=== PATIENT | female | born 1970 ===

== ENCOUNTER 2017-07-12 09:04 | Emergency (ER) | payer OTHER ==
--- NOTE | 2017-07-12 09:49 | ED PDOC ---
Arrival/HPI - General Historian: Patient <Dewayne Obregon - Last Filed: 07/12/17 18:57> - History of Present Illness Time/Duration: Prior to Arrival Symptom Onset: Gradual Symptom Course: Improving <Elier Cruz - Last Filed: 07/13/17 11:34> - General Chief Complaint: High Blood Pressure Time Seen by Provider: 07/12/17 09:40 - History of Present Illness Narrative History of Present Illness (Text): 07/12/17 09:45 Pt is a 46 yo F with PMH of hypertension and RA presents to Emergency department due elevated BP found prior to colonscopy with Dr. Matson. BP measured at outpatient endoscopy lab was found to be in 200's/100's. Pt was given Labetalol 20 mg IVP with improvement in her BP. Pt was then advised to proceed to Emergency department for further evaluation. Pt denied chest pain, shortness of breath, blurred vision fatigue, nausea, vomiting, diarrhea, abdominal pain, fever, chills, headache, dizziness, or dysuria. (Dewayne Obregon) Past Medical History - Cardiac Hx Cardiac Disorders: Yes Hx Hypertension: Yes - Neurological Hx Migraine: Yes - Musculoskeletal/Rheumatological Hx Rheumatoid Arthritis: Yes - Psychiatric Hx Substance Use: No - Surgical History Hx Orthopedic Surgery: Yes <Dewayne Obregon - Last Filed: 07/12/17 18:57> - Provider Review Nursing Documentation Reviewed: Yes <Elier Cruz - Last Filed: 07/13/17 11:34> Family/Social History Smoking Status: Never Smoked Hx Alcohol Use: No Hx Substance Use: No <Dewayne Obregon - Last Filed: 07/12/17 18:57> - Physician Review Nursing Documentation Reviewed: Yes Family/Social History: No Known Family HX <Elier Cruz - Last Filed: 07/13/17 11:34> Allergies/Home Meds <Dewayne Obregon - Last Filed: 07/12/17 18:57> <Elier Cruz - Last Filed: 07/13/17 11:34> Allergies/Adverse Reactions: Allergies No Known Allergies Allergy (Verified 07/12/17 09:31) Review of Systems - Review of Systems Constitutional: Normal Eyes: Normal ENT: Normal Respiratory: Normal Cardiovascular: Normal Gastrointestinal: Normal Genitourinary Female: Normal Musculoskeletal: Normal Skin: Normal Neurological: Normal Endocrine: Normal Hemo/Lymphatic: Normal Psychiatric: Normal <Dewayne Obregon - Last Filed: 07/12/17 18:57> - Physician Review All systems were reviewed & negative as marked: Yes <Elier Cruz - Last Filed: 07/13/17 11:34> Physical Exam Temperature: Afebrile Blood Pressure: Normal Appearance: Positive for: Well-Appearing - Systems Exam Head: Present: Atraumatic, Normocephalic Respiratory/Chest: Present: Clear to Auscultation. No: Accessory Muscle Use, Wheezes, Rales, Rhonchi Cardiovascular: Present: Regular Rate and Rhythm, Normal S1, S2. No: Murmurs Abdomen: Present: Normal Bowel Sounds. No: Tenderness, Distention, Rebound Upper Extremity: Present: Normal Inspection Lower Extremity: Present: Normal Inspection Neurological: Present: GCS=15 Skin: Present: Warm, Dry, Normal Color. No: Rashes Psychiatric: Present: Alert, Oriented x 3 <Dewayne Obregon - Last Filed: 07/12/17 18:57> - Systems Exam Pupils: Present: PERRL <Elier Cruz - Last Filed: 07/13/17 11:34> Vital Signs Pulse Resp BP Pulse Ox 07/12/17 11:30 72 18 159/93 H 98 07/12/17 09:31 160/131 H Medical Decision Making <Dewayne Obregon - Last Filed: 07/12/17 18:57> <Elier Cruz - Last Filed: 07/13/17 11:34> ED Course and Treatment: 07/12/17 10:11 Impression: 46 year old female presents to the Emergency department for elevated BP. In agreement with resident note, which includes further HPI details. Patient was seen and evaluated with resident, came up with plan and treatment together. Plan: -- EKG -- Labs -- Urinalysis -- Reassess and disposition 07/13/17 11:33 pt seen with resident. asymptomatic hypertension. no e/o of htn emergency. no complaints in er. advise otupt f/u labs unremarkable. neuro intac.t (Elier Cruz) - Lab Interpretations Lab Results: 07/12/17 09:50 07/12/17 09:50 Lab Results 07/12/17 09:50: Sodium 141, Potassium 3.1 L, Chloride 104, Carbon Dioxide 27, Anion Gap 14, BUN 12, Creatinine 1.0, Est GFR ( Amer) > 60, Est GFR (Non- Af Amer) 59, Random Glucose 101, Calcium 8.8, Magnesium 2.2, Total Bilirubin 0.5 , AST 43 H, ALT 25, Alkaline Phosphatase 88, Lactate Dehydrogenase 442, Total Creatine Kinase 89, Troponin I < 0.01, Total Protein 7.7, Albumin 3.9, Globulin 3.8, Albumin/Globulin Ratio 1.0 L 07/12/17 09:50: PT 13.1 H, INR 1.14 H, APTT 30.4 07/12/17 09:50: WBC 10.7, RBC 4.50, Hgb 10.6 L, Hct 34.4 L, MCV 76.4 L, MCH 23.6 L, MCHC 30.8 L, RDW 17.4 H, Plt Count 412, MPV 10.1, Gran % 77.6 H, Lymph % (Auto) 15.9 L, [place] % (Auto) 4.6, Eos % (Auto) 1.4 L, Baso % (Auto) 0.5, Gran # 8.31 H, Lymph # (Auto) 1.7, [place] # (Auto) 0.5, Eos # (Auto) 0.2, Baso # (Auto ) 0.05 - Medication Orders Current Medication Orders: Discontinued Medications Potassium Chloride (K-Dur 20 Meq Er Tab) 40 meq PO STAT STA Stop: 07/12/17 10:45 Last Admin: 07/12/17 11:11 Dose: 40 meq <Dewayne Obregon - Last Filed: 07/12/17 18:57> - PA / MUSEUM TECHNICIAN / Resident Statement / has reviewed & agrees with the documentation as recorded. MD/ has examined the patient and agrees with the treatment plan. - Scribe Statement The provider has reviewed the documentation as recorded by the Scribe <Elier Cruz - Last Filed: 07/13/17 11:34> - Scribe Statement Joan Steel. All medical record entries made by the [facility] were at my direction and personally dictated by me. I have reviewed the chart and agree that the record accurately reflects my personal performance of the history, physical exam, medical decision making, and the department course for this patient. I have also personally directed, reviewed, and agree with the discharge instructions and disposition. (Elier Cruz) Disposition/Present on Arrival - Present on Arrival Any Indicators Present on Arrival: No History of DVT/PE: No History of Uncontrolled Diabetes: No Urinary Catheter: No History of Decub. Ulcer: No History Surgical Site Infection Following: None - Disposition Have Diagnosis and Disposition been Completed?: Yes Disposition Time: 18:58 <Dewayne Obregon - Last Filed: 07/12/17 18:57> <Elier Cruz - Last Filed: 07/13/17 11:34> - Disposition Diagnosis: Hypertension, Hypokalemia Disposition: HOME/ ROUTINE Condition: STABLE Discharge Instructions (ExitCare): Hypokalemia (ED), Hypertension (ED) Additional Instructions: follow up with your doctor. return to er with worsening symptoms or concerns. Referrals: Rubio Gu MD [Primary Care Provider] - Follow up with primary Forms: [email or web address] (Honduran)
[2017-07-12 10:28] LABS: BASO # 0.05 K/mm3 (0.0-2.0); BASO % 0.5 % (0.0-3.0); EOS # 0.2 (0.0-0.7); EOS % 1.4 % (1.5-5.0); GRAN # 8.31 (1.4-6.5); GRAN % 77.6 % (50.0-68.0); HEMOGLOBIN 10.6 g/dL (12.0-16.0); LYMPH # 1.7 (1.2-3.4); LYMPH % 15.9 % (22.0-35.0); MEAN CELL VOLUME 76.4 fl (80.0-105.0); MEAN CORPUSCULAR HEMOGLOBIN 23.6 pg (25.0-35.0); MEAN CORPUSCULAR HGB CONC 30.8 g/dl (31.0-37.0); MEAN PLATELET VOLUME 10.1 fl (7.0-11.0); MONO # 0.5 (0.1-0.6); MONO % 4.6 % (1.0-6.0); RBC 4.5 10^6/uL (3.5-6.1); RED CELL DISTRIBUTION WIDTH 17.4 % (11.5-14.5); WHITE BLOOD COUNT 10.7 10^3/ul (4.5-11.0)
[2017-07-12 10:43] LABS: ALBUMIN 3.9 g/dL (3.0-4.8); ALT/SGPT 25 U/L (7-56); AST/SGOT 43 U/L (14-36); BLOOD UREA NITROGEN 12 mg/dL (7-21); CALCIUM 8.8 mg/dL (8.4-10.5); GFR AFRICAN-AMERICAN > 60; GFR NON-AFRICAN AMERICAN 59; MAGNESIUM 2.2 mg/dL (1.7-2.2)
[2017-07-12] MEDS ORDERED: Potassium Chloride 20 mEq ER Tab PO STA (10:44)
[2017-07-12 10:45] LABS: INR 1.14 (0.93-1.08); PARTIAL THROMBOPLASTIN TIME 30.4 Seconds (25.1-36.5); PROTHROMBIN TIME 13.1 SECONDS (9.4-12.5)
[2017-07-12 10:53] LABS: TROPONIN I < 0.01 ng/mL
[2017-07-12 11:45] VITALS: BP 159/93; PULSE 72; RESP 18; O2SAT 98
== END 2017-07-12 11:35 | disposition home or self-care (01) ==
LOC: ED 09:04
DX: I10 Essential (primary) hypertension (principal); E87.6 Hypokalemia; M06.9 Rheumatoid arthritis, unspecified